=== PATIENT | female | born 2000 | race American Indian/Alaskan Native ===

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

== ENCOUNTER → 2021-07-13 15:42 | Outpatient (CLI) | payer OTHER, MEDICAID, SELFPAY ==
[2021-07-13 16:34] LABS: Appearance Urine UA CLEAR; Bilirubin Urine UA NEGATIVE (NEGATIVE); Color Urine UA YELLOW; Glucose Urine UA NEGATIVE (Negative); Ketones Urine UA 2+ (NEGATIVE); Leukocyte Esterase Urine UA NEGATIVE (NEGATIVE); Nitrite Urine UA NEGATIVE (Negative); Occult Blood Urine UA NEGATIVE (Negative); Protein Urine UA 1+ (Negative); Specific Gravity Urine UA 1.025 (1.000-1.035); Urobilinogen Urine UA 0.2 E.U./dL (0.2)
[2021-07-13 16:38] LABS: pH Urine UA 5.5 (4.5-8.0)
[2021-07-13 16:44] LABS: Amorphous Sediment Urine 3+; Bacteria Urine Moderate (10-30); Culture Indicated Urine Cult Not Indicated; RBC Urine None Seen (0-5/HPF); Squamous Epithelial Cell Urine 10-30 /HPF (0-5/HPF); WBC Urine None Seen (0-5/HPF)
== END ==
PROVIDERS: PCP Internal Medicine; Visit Provider Nurse Practitioner Critical Care Medicine
DX: R11.0 Nausea (principal)
CPT/HCPCS: 81001; 81002; 87086

== ENCOUNTER → 2021-08-21 11:18 | Outpatient (CLI) | payer OTHER, MEDICAID, SELFPAY ==
[2021-08-21 11:57] LABS: Add Manual Diff / Slide Review NO; Basophils Absolute Auto 0 /uL (0-100); Basophils Percent Auto 0.5 % (0-2); Eosinophils Absolute Auto 100 /uL (0-450); Eosinophils Percent Auto 0.9 % (2-4); Hematocrit 40.9 % (36-46); Hemoglobin 13.6 g/dL (12.0-16.0); Lymphocytes Absolute Auto 1900 /uL (1100-4500); Lymphocytes Percent Auto 27.1 % (25-40); Mean Corpuscular HGB Conc 33.2 % (30-36); Mean Corpuscular Hemoglobin 26.9 PG (26-34); Mean Corpuscular Volume 81.1 fL (80-100); Monocytes Absolute Auto 500 /uL (0-900); Monocytes Percent Auto 7.4 % (3-14); Neutrophils Absolute Auto 4600 /uL (1500-7000); Neutrophils Percent Auto 64.1 % (50-75); Platelet Count 345 X10^3/uL (150-400); Red Blood Cell Count 5.04 X10^6/uL (4.0-5.2); Red Cell Distribution Width 14.7 % (11.6-14.8); White Blood Cell Count 7.2 X10^3/uL (4.5-11.0)
[2021-08-21 12:01] LABS: Hemoglobin A1C% w Est Avg Glu 5.5 % (4.0-6.0)
[2021-08-21 12:38] LABS: Alanine Aminotransferase 38 IU/L (<35); Albumin 4.6 g/dL (3.5-5.0); Albumin Globulin Ratio 1.5 (1.0-2.8); Alkaline Phosphatase 109 U/L (38-126); Aspartate Aminotransferase 32 IU/L (14-36); BUN Creatinine Ratio 17.5 (6-22); Bilirubin Total 0.8 mg/dL (0.2-1.3); Blood Urea Nitrogen 10 mg/dL (7-17); Calcium 9.2 mg/dL (8.4-10.2); Carbon Dioxide 27 mmol/L (22-32); Chloride 104 mmol/L (98-107); Estimated Glomerular Filt Rate > 60 mL/min (>60); Globulin 3.1 g/dL (1.7-4.1); Glucose 93 mg/dL (70-100); Sodium 140 mmol/L (137-145); Total Protein 7.7 g/dL (6.3-8.2)
[2021-08-21 12:43] LABS: Appearance Urine UA CLEAR; Bilirubin Urine UA NEGATIVE (NEGATIVE); Color Urine UA YELLOW; Glucose Urine UA NEGATIVE (Negative); Ketones Urine UA NEGATIVE (NEGATIVE); Leukocyte Esterase Urine UA TRACE (NEGATIVE); Nitrite Urine UA NEGATIVE (Negative); Occult Blood Urine UA NEGATIVE (Negative); Protein Urine UA TRACE (Negative); Specific Gravity Urine UA 1.015 (1.000-1.035); Urobilinogen Urine UA 0.2 E.U./dL (0.2)
[2021-08-21 12:46] LABS: pH Urine UA 6.5 (4.5-8.0)
[2021-08-21 12:48] LABS: Potassium 4.4 mmol/L (3.4-5.1)
[2021-08-21 13:00] LABS: Amorphous Sediment Urine 1+; Bacteria Urine Many (>30); Culture Indicated Urine Cult Not Indicated; Mucus Urine 1+ (Negative); RBC Urine None Seen (0-5/HPF); Squamous Epithelial Cell Urine 10-30 /HPF (0-5/HPF); WBC Urine 1-5/HPF (0-5/HPF)
[2021-08-21 13:05] LABS: TSH w/ Reflex to FT4 1.28 uIU/mL (0.47-4.68)
[2021-08-22 05:29] LABS: HEMOLYSIS < 15 (0-50)
== END ==
PROVIDERS: PCP Pediatrics; Referring Provider Pediatrics; Visit Provider Pediatrics
DX: N92.6 Irregular menstruation, unspecified (principal); E66.01 Morbid (severe) obesity due to excess calories; Z68.41 Body mass index [BMI] 40.0-44.9, adult
CPT/HCPCS: 36415; 80053; 81003; 81015; 83036; 84403; 84443; 85025

== ENCOUNTER → 2021-09-08 16:22 | Outpatient (CLI) | payer OTHER, MEDICAID, SELFPAY ==
--- NOTE | 2021-09-08 16:23 | DI.US.S_ITS ---
PROCEDURE: US PELVIC COMPLETE INDICATIONS: presumed PCOS TECHNIQUE: Real-time scanning was performed of the pelvic organs, with image documentation. Additional endovaginal scanning was necessary due to incomplete visualization of the adnexal and endometrial structures by transabdominal scanning. COMPARISON: None. FINDINGS: Uterus: Uterus is anteverted and normal in size at 7.7 x 3.2 x 4.1 cm. The myometrium is homogeneous. The endometrium measures 15.5 mm combined thickness. Ovaries: The right ovary measures 4.0 x 2.5 x 3.1 cm. The left ovary measures 3.4 x 2.5 x 2.9 cm. The ovaries have a normal sonographic appearance. 12 or more follicles are visualized within the right ovary. The left ovary is only visualized transabdominally and is poorly characterized. No adnexal masses are seen. Other: No pathologic free abdominal or pelvic fluid. IMPRESSION: 1. Likely greater than 12 follicles within the right ovary and the left ovary is poorly characterized. Findings meet the [place] definition of polycystic ovaries. In the absence of ovulatory dysfunction or clinically/biochemically diagnosed hyperandrogenism, findings are non specific and do not indicate the presence of polycystic ovarian syndrome. In a patient with ovulatory dysfunction, further clinical evaluation is warranted. We strive to produce accurate, complete, and clear reports of imaging services. To assist us in improving patient care, this report was composed using standard report templates and voice recognition software. Therefore, it may contain abnormal punctuation, insertions and/or omissions. Occasional wrong-word or sound-alike substitutions may occur. Though we review the report and make efforts to correct it, we do recommend that the report be read carefully in proper context to recognize any text inaccuracies. Dictated by: Cookie Smith M.D. on 09/09/2021 at 9:19 Approved by: Cookie Smith M.D. on 09/09/2021 at 9:25
== END ==
PROVIDERS: PCP Pediatrics; Referring Provider Pediatrics; Visit Provider Pediatrics
DX: N92.6 Irregular menstruation, unspecified (principal); E66.01 Morbid (severe) obesity due to excess calories; Z68.41 Body mass index [BMI] 40.0-44.9, adult
CPT/HCPCS: 76830; 76856

== ENCOUNTER 2021-09-20 00:05 | Emergency (ER) | payer OTHER, MEDICAID, SELFPAY ==
[2021-09-20 00:16] VITALS: BP 142/84; PULSE 95; RESP 18; TEMP 36.8; O2SAT 99; BMI 41.7
--- NOTE | 2021-09-20 00:16 | ED.ABDPAIN ---
HPI - Abdominal Pain General Chief Complaint: Abdominal Pain Stated Complaint: abd. pain Time Seen by Provider: 09/20/21 00:07 Source: patient Mode of arrival: Ambulatory Limitations: no limitations History of Present Illness HPI narrative: This is a 20-year-old female on paroxetine for mood. Patient states that she started her menses today, she states she noticed some lower abdominal pain 1 time a sharp pain while at work, then appreciated pain when she had bowel movements in her lower pelvic region but not rectally. Patient denies fevers or chills. No nausea or vomiting. No chest pain or shortness of breath. She does not actively have any abdominal pain, she denies back or flank pain. She states her abdominal cramps typically are a little bit higher. And are not usually worse when she tries to have a bowel movement. She denies dysuria, urgency or frequency. No new vaginal discharge. She states she is sexually active. She denies any surgeries. No known drug allergies. No tobacco, alcohol or illicit. Patient has not taken anything for pain today. Related Data Previous Rx's Medication Instructions Recorded paroxetine HCl 20 mg tablet (Paxil) See Rx Instructions PO DAILY #35 08/21/21 tabs Allergies Allergy/AdvReac Type Severity Reaction Status Date / Time No Known Drug Allergies Allergy Verified 08/21/21 10:45 Review of Systems Review of Systems ROS Unobtainable: All systems reviewed & are unremarkable except as noted in HPI and below Patient History Medical History Anxiety and depression Back strain Healthy child Irregular menses Strain of left knee Up-to-date with immunizations Social History Smoking Status: Never smoker alcohol intake: current (2-3 drinks per month ) substance use type: marijuana Smoking Status: Never smoker alcohol intake frequency: 0-2 drinks per day Substance Use Type: does not use Exam Narrative Exam Narrative: GENERAL: Alert and oriented x three, obese female in mild distress HEENT: Head normocephalic, atraumatic, EOMI, pupils reactive, face symmetric, moist mucous membranes NECK: Supple, full range of motion CARDIOVASCULAR: Regular rate and rhythm without murmurs, rubs or gallops. RESPIRATORY: Breath sounds equal bilaterally, no wheezes rales or rhonchi. ABDOMEN: Soft, nontender. Normoactive bowel sounds all 4 quadrants. No guarding or rebound, rigidity, no mass. : Very mild left CVA tenderness, no right CVA tenderness EXTREMITIES: Normal range of motion, no clubbing or edema. Neurovascularly intact NEUROLOGICAL: Cranial nerves II through XII grossly intact. Moving all extremities SKIN: Warm, dry, no petechiae, no rashes or lesions. Initial Vital Signs Initial Vital Signs: Vital Signs Temperature 98.2 F 09/20/21 00:16 Pulse Rate 95 H 09/20/21 00:16 Respiratory Rate 18 09/20/21 00:16 Blood Pressure 142/84 H 09/20/21 00:16 Pulse Oximetry 99 09/20/21 00:16 Oxygen Delivery Method 09/20/21 00:16 Course Vital Signs Vital signs: Vital Signs - 8 hr 09/20/21 00:16 Temperature 98.2 F Pulse Rate 95 H Respiratory Rate 18 Blood Pressure 142/84 H Pulse Oximetry 99 Oxygen Delivery Method Room Air MDM - Abdominal Pain Lab Data Point of care testing: Point of Care Testing Test Results Negative Urine Dip Bedside Urine Glucose Negative Bedside Urine Bilirubin - Negative Bedside Urine Ketone - Negative Urine Specific [place] 1.020 Bedside Urine Occult Blood ++ Bedside Urine pH 6.0 Bedside Urine Protein - Negative Bedside Urine Urobilinogen - Negative Bedside Urine Nitrite - Negative Bedside Urine Leukocytes - Negative Esterase MDM Narrative Medical decision making narrative: This is a 20-year-old female with lower pelvic pain that started today, patient did start her menses today. Her abdominal exam is benign. test is negative. Point of care urine shows blood but no leuks, nitrates or other changes consistent with infection. Patient's abdominal exam being benign and starting her menses today I suspect she is having pelvic pain secondary to this. Return precautions were discussed as well as watchful waiting. Patient feels comfortable with this plan states she will take ibuprofen when she gets home. Discharge Plan Departure Patient Disposition: Home Clinical Impression: Pelvic pain Activity Restrictions/Additional Instructions: You may take Tylenol and/or ibuprofen as needed for abdominal pain or discomfort. Heating pads or hot packs may also help your symptoms Please return for fevers greater 100.4 F, rapidly worsening abdominal pain, back or flank pain, persistent vomiting, black or bloody stools, passing out or other new or concerning symptoms. Prescriptions: No Action paroxetine HCl [Paxil] 20 mg tablet See Rx Instructions PO DAILY Qty: 35 0RF Rx Instructions: 10mg for 5 days then 20mg for 30 days orally daily; Referrals: Quinn Austin MD [Primary Care Provider] - Visit Report Forms: Patient Portal/API
== END 2021-09-20 00:40 | disposition home or self-care (01) ==
PROVIDERS: Emergency Provider Emergency Medicine; PCP Pediatrics
DX: R10.2 Pelvic and perineal pain (principal)
CPT/HCPCS: 81003; 81025; 99282